=== PATIENT | female | born 1970 | race African-American/Black ===

== ENCOUNTER 2022-06-08 10:29 | Emergency (ER) | payer OTHER ==
[2022-06-08 10:58] VITALS: BP 196/100; PULSE 53; RESP 18; TEMP 98.3; BMI 44.2
== END 2022-06-08 11:46 | disposition home or self-care (01) ==
LOC: JER 10:29
DX: I10 Essential (primary) hypertension (principal); Z76.0 Encounter for issue of repeat prescription
CPT/HCPCS: 93005; 93010; 99283-25

== ENCOUNTER → 2022-07-27 | Day surgery (SDC) | payer OTHER | END | disposition home or self-care (01) | LOC: JRADUS-SUR 09:33 | PROVIDERS: ATTEND Internal Medicine Nephrology | PROC: 0H9T3ZX Drainage of Right Breast, Percutaneous Approach, Diagnostic (ICD-10-PCS; principal; 2022-07-27) | DX: D24.1 Benign neoplasm of right breast (principal) | CPT/HCPCS: 19083; 77065-TC; 87899; 88305-TC; A4648 ==

== ENCOUNTER → 2024-06-13 | Day surgery (SDC) | payer OTHER ==
[2024-06-11 15:33] VITALS: BMI 44.6
[~2024-06-13] MED LIST: PROPOFOL 60 ML ONE
[2024-06-13 07:14] VITALS: RESP 19
[2024-06-13 10:22] VITALS: TEMP 98
[2024-06-13 10:25] VITALS: BP 120/78; PULSE 84
== END | disposition home or self-care (01) ==
LOC: FASU-ENDO 06:43
PROVIDERS: ATTEND Internal Medicine Gastroenterology
PROC: 0DJD8ZZ Inspection of Lower Intestinal Tract, Via Natural or Artificial Opening Endoscopic (ICD-10-PCS; principal; 2024-06-13 09:30)
DX: Z12.11 Encounter for screening for malignant neoplasm of colon (principal)
CPT/HCPCS: 82962